=== PATIENT | female | born 1990 | race Caucasian/White ===

== ENCOUNTER → 2021-11-05 08:56 | Outpatient (CLI) | payer OTHER, MEDICAID, SELFPAY ==
[2021-11-05 09:23] LABS: COVID19 -Nasal RAPID Negative (Negative)
== END ==
PROVIDERS: Visit Provider Nurse Practitioner Family
DX: Z20.822 Contact with and (suspected) exposure to COVID-19 (principal)
CPT/HCPCS: 87635